=== PATIENT | female | born 1955 | race Caucasian/White ===

== ENCOUNTER 2023-06-19 13:54 | Emergency (ER) | payer OTHER ==
[2023-06-19 14:25] VITALS: BP 159/93; PULSE 97; RESP 16; TEMP 97.8; BMI 21.2
[2023-06-19] MEDS ORDERED: ACETAMINOPHEN 500 MG TABLET (FP) PO ONE (14:37)
[2023-06-19] MEDS ORDERED: ACETAMINOPHEN 500 MG TABLET (FP) ONE (14:41)
== END 2023-06-19 16:07 | disposition home or self-care (01) ==
LOC: FER 13:54
DX: S82.002A Unspecified fracture of left patella, initial encounter for closed fracture (principal); X58.XXXA Exposure to other specified factors, initial encounter; Y92.9 Unspecified place or not applicable
CPT/HCPCS: 73502-TC-LT-FY; 73562-TC-LT-FY; 73590-TC-LT-FY; 99283-25